=== PATIENT | female | born 1965 | race Caucasian/White ===

== ENCOUNTER 2016-12-26 06:05 | Day surgery (SDC) | payer SELFPAY ==
[2016-12-24 16:48] VITALS: BMI 25.9
[2016-12-26] MEDS ORDERED: LIDOCAINE HCL 1%, 10 MG/ML (20ML VIAL) ONE (07:17)
[2016-12-26] MEDS ORDERED: EPINEPHrine 1:1,000 1 MG/1 ML - 30ML VIAL (INJECTION) ONE (07:17)
[2016-12-26] MEDS ORDERED: SUCCINYLCHOLINE CHLORIDE 200 MG/10 ML VIAL ONE (07:43)
[2016-12-26] MEDS ORDERED: ROCURONIUM BROMIDE 50 MG/5 ML VIAL ONE ×2 (07:43→09:31)
[2016-12-26] MEDS ORDERED: PROPOFOL 20 ML ONE ×3 (07:43→10:16)
[2016-12-26] MEDS ORDERED: LIDOCAINE HCL/PF 2% SDV 5ML VIAL ONE (07:45)
[2016-12-26] MEDS ORDERED: LIDOCAINE HCL 2% JELLY (5 ML/TUBE) ONE (07:45)
[2016-12-26] MEDS ORDERED: ceFAZolin SODIUM 1 GM VIAL ONE (07:45)
[2016-12-26] MEDS ORDERED: DEXAMETHASONE SOD PHOSPHATE 4 MG/1 ML VIAL ONE (07:45)
[2016-12-26] MEDS ORDERED: ONDANSETRON 4 MG/2 ML VIAL ONE ×2 (07:45→11:58)
[2016-12-26] MEDS ORDERED: LIDOCAINE 1%/EPI 1:100000 (20 ML MULTI DOSE VIAL) ONE (08:28)
[2016-12-26] MEDS ORDERED: NEOSTIGMINE METHYLSULFATE 0.5 MG/ML - 10 ML MDV ONE (10:54)
[2016-12-26] MEDS ORDERED: GLYCOPYRROLATE 0.2 MG/1 ML VIAL ONE (10:54)
--- NOTE | 2016-12-26 11:46 | OP ---
Operative Note - Note: Operative Date: 12/26/16 Pre-Operative Diagnosis: Excessive pannus and adominal skin and adipose tissue s /p weight loss Operation: Extended abdominoplasty Findings: Excess skin and abdominal skin and adipose tissue Implants: none Post-Operative Diagnosis: Same as Pre-op Surgeon: Estuardo Kennedy Beauty Parlor Cleaner: Adri Boothe Anesthesiologist/BOSS DYER: Chaparro Solis Anesthesia: MAC Specimens Removed: Abdominal skin and adipose tissue from abdomenand flanks Estimated Blood Loss (mls): 100 Drains & Tubes with Location: 10 bill drains x 2 to lower abdomen
[2016-12-26] MEDS ORDERED: PROMETHAZINE HCL 25 MG/1 ML VIAL IVPUSH PRN (11:57)
[2016-12-26] MEDS ORDERED: ONDANSETRON 4 MG/2 ML VIAL IVPUSH PRN ×2 (11:57→21:59)
[2016-12-26] MEDS ORDERED: oxyCODONE HCL 5 MG TABLET PO PRN ×2 (11:57)
[2016-12-26] MEDS ORDERED: LACTATED RINGERS SOLUTION 1,000 ML IV SCH (12:00)
[2016-12-26] MEDS ORDERED: CEPHALEXIN MONOHYDRATE 500 MG CAPSULE (UD) PO ONE (22:00)
[2016-12-27] MEDS ORDERED: ACETAMINOPHEN 325 MG TABLET (FP) PO PRN (07:26)
[2016-12-27] MEDS ORDERED: SODIUM CHLORIDE 1,000 ML IV ONE (07:30)
[2016-12-27] MEDS ORDERED: CEPHALEXIN MONOHYDRATE 500 MG CAPSULE (UD) PO ONE (08:00)
--- NOTE | 2016-12-27 09:20 | PN ---
Progress Note (short form) - Note Progress Note: 51F POD1 s/p abdominoplasty under GA-ETT doing well. Pt states that pain is well controlled, reports no anesthetic complications.
--- NOTE | 2016-12-27 12:36 | OP ---
DATE OF OPERATION: 12/26/2016 SURGEON: Estuardo Kennedy MD [employer] SURGEON: MAURICE Godinez PREOPERATIVE DIAGNOSIS: Abdominal deformity with weakness. POSTOPERATIVE DIAGNOSIS: Abdominal deformity with weakness. OPERATIVE PROCEDURE: Extended abdominoplasty of abdominal wall. INDICATION: The patient is a young woman who had a large amount of weight loss and now presents with excess skin and abdominal pannus with a large bulging of her anterior abdominal wall. The risks and benefits of surgical versus nonsurgical alternatives as well as material complications of extended abdominoplasty with plication of the abdominal wall were described on multiple occasions preoperatively to the patient. She agreed with the planned procedure. OPERATIVE PROCEDURE IN DETAIL: The patient was taken to the operating room and after induction of general anesthesia in the supine position, both arms were extended and padded and Venodyne boots were placed. At this point the markings made in the standing position preoperatively for outline of an extended abdominoplasty in the lower abdominal area with modification of the pubic mons was also re-outlined and re-measured to confirm the lying and sitting positions. These markings were discussed preoperatively with the patient as well as in the holding area today with she and her in attendance and she understood the nature of the procedure. An incision was made after 1% local lidocaine infusion was infiltrated into the abdominal wall. The incision was carried down along the lower abdominal incision out to the flanks, down through the skin to the subcutaneous tissue and down to the underlying rectus fascia. Dissection was carried superiorly along the rectus fascia up to the umbilicus which was then circumscribed and dropped back in the usual fashion. Dissection was carried superiorly above the incision superiorly and markings were reconfirmed and the patient was placed into the beach chair position to confirm the excision. The lower abdominal skin and subcutaneous tissue was then excised and sent for pathologic diagnosis. The wound was copiously irrigated and hemostasis obtained. The dissection was then carried up to the xiphoid region in the central portion. Lateral attachments to the vasculature were left intact. Once the abdominal wall was dissected free from the underlying attachments, a plication of the abdominal wall was carried out using No. 1 V-lock suture in a running fashion on the lower portion and then the superior portion independently in double and triple layer fashion. At this point liposuction was carried out on the flank area to contour the lateral portion of the wounds and then the patient was placed in semi-Metzger sitting position. The anterior abdominal wall was tacked down with multiple high-tension sutures to the lower abdominal wall. The abdominal wall was closed with multiple 2-0 sutures on the quilting area and then in the lower abdomen was 2-0 Vicryl sutures on Matt fascia. Two 19-Chinmay drains were brought out through separate stab wounds laterally and then the skin and subcutaneous tissue was closed using 3-0 Biosyn suture on the deep dermis and 4-0 Biosyn in a subcuticular fashion. The umbilicus was brought out to its anatomic position using the eyeglass technique and then suture using 3-0 and 4-0 Biosyn sutures. All wounds showed good viability, good skin color and refill was seen at the end of the procedure. The patient was dressed sterilely with Dermabond, Steri-Strips and a compressive dressing with an abdominal binder. The patient tolerated the procedure well. Carolin [id number]
[2016-12-27 14:32] VITALS: BP 96/60; PULSE 90; TEMP 99.4
== END 2016-12-27 15:18 | disposition home or self-care (01) ==
LOC: FASU 06:05 → FM/S 11:34 → FASU 12-27 15:18
PROVIDERS: ATTEND Plastic Surgery
PROC: 0J080ZZ Alteration of Abdomen Subcutaneous Tissue and Fascia, Open Approach (ICD-10-PCS; principal; 2016-12-26 08:31)
DX: M95.8 Other specified acquired deformities of musculoskeletal system (principal); M62.81 Muscle weakness (generalized)